=== PATIENT | female | born 1985 | race African-American/Black ===

== ENCOUNTER 2024-08-29 21:34 | Emergency (ER) | payer OTHER ==
[2024-08-29 21:44] VITALS: RESP 18; TEMP 98.3; BMI 28.1
[2024-08-29 22:59] LABS: ABSOLUTE IMMATURE GRANULOCYTES 0.03 x10^3/uL (0.0-0.031); BASOPHILS # 0.01 x10^3/uL (0.01-0.08); EOSINOPHIL % 0.5 % (0.7-5.8); EOSINOPHILS # 0.03 x10^3/uL (0.04-0.36); HEMATOCRIT 34.2 % (34.1-44.9); HEMOGLOBIN 10.7 g/dL (11.2-15.7); MCHC 31.3 g/dl (32.2-35.5); MEAN CELL VOLUME 82.2 fl (79.4-94.8); MEAN PLT VOLUME 11.6 fl (9.4-12.3); MONOCYTE # 0.72 x10^3/uL (0.24-0.86); MONOCYTE % 10.9 % (4.7-12.5); PLATELET COUNT # 246 x10^3/uL (182-369); RDW 13.6 % (12.1-16.8)
[2024-08-29 23:03] LABS: EPI CELLS 35 /uL (0-25.1); HCG,QUALITATIVE URINE Negative; HYALINE CASTS 1 /uL (0-3.1); URINE APPEARANCE CLEAR; URINE BACTERIA 461 /uL (0-1359); URINE BILIRUBIN NEGATIVE (NEGATIVE); URINE COLOR DK YELLOW; URINE GLUCOSE (UA) NEGATIVE (NEGATIVE); URINE KETONE TRACE (NEGATIVE); URINE LEUK ESTERASE NEGATIVE (NEGATIVE); URINE NITRITE NEGATIVE (NEGATIVE); URINE PROTEIN 1+ (NEGATIVE); URINE RBC 11 /uL (0-23.9); URINE WBC 26 /uL (0-25.8)
[2024-08-29] MEDS ORDERED: ONDANSETRON 4 MG/2 ML VIAL IVPUSH ONE (23:14)
[2024-08-29 23:49] LABS: POTASSIUM 3.2 mmol/L (3.5-5.1)
[2024-08-29 23:51] LABS: CALCIUM 8.9 mg/dL (8.5-10.1)
[2024-08-29 23:52] LABS: ALBUMIN 3.4 g/dl (3.4-5.0); BLOOD UREA NITROGEN 10.5 mg/dL (7-18)
[2024-08-29 23:55] LABS: CREATININE 0.8 mg/dL (0.55-1.3)
[2024-08-29 23:57] LABS: BILIRUBIN,TOTAL 0.6 mg/dL (0.2-1); TOT PROT 8.4 g/dl (6.4-8.2)
[2024-08-30 00:16] LABS: MAGNESIUM 2.3 mg/dL (1.8-2.4)
[2024-08-30] MEDS ORDERED: POTASSIUM CHLORIDE ORAL LIQUID 20 MEQ/15 ML ONE (00:33)
[2024-08-30] MEDS ORDERED: hydrOXYzine PAMOATE 50 MG CAPSULE (FP) ONE (00:33)
[2024-08-30] MEDS: POTASSIUM CHLORIDE ORAL LIQUID 20 MEQ/15 ML PO ONE (00:39)
[2024-08-30] MEDS: hydrOXYzine HCL 50 MG TABLET PO ONE (00:39)
[2024-08-30 00:43] VITALS: BP 149/106; PULSE 105
== END 2024-08-30 01:07 | disposition home or self-care (01) ==
LOC: JER 21:34
DX: F41.9 Anxiety disorder, unspecified (principal); R00.2 Palpitations; R06.02 Shortness of breath
CPT/HCPCS: 36415; 80053; 81003; 83735; 84439; 84443; 84703; 85025; 93005; 93010; 99284-25